=== PATIENT | male | born 1985 | race African-American/Black ===

== ENCOUNTER 2021-09-26 22:07 | Emergency (ER) | payer MEDICAID, OTHER ==
[2021-09-26] MEDS ORDERED: Acetaminophen 500 MG TAB ONE (22:49)
[2021-09-26] MEDS ORDERED: Ibuprofen 200 MG TAB ONE (22:49)
== END 2021-09-26 23:30 | disposition home or self-care (01) ==
LOC: CSHERS 22:07
DX: M79.644 Pain in right finger(s) (principal); M54.9 Dorsalgia, unspecified; V47.5XXA Car driver injured in collision with fixed or stationary object in traffic accident, initial encounter

== ENCOUNTER 2021-10-18 10:10 | Emergency (ER) | payer OTHER ==
[2021-10-18] MEDS ORDERED: Ketorolac Tromethamine 30 MG/ML VIAL ONE (10:59)
== END 2021-10-18 11:10 | disposition home or self-care (01) ==
LOC: CSHERS 10:10
DX: K02.9 Dental caries, unspecified (principal)
CPT/HCPCS: 96372; J1885

== ENCOUNTER 2022-02-06 11:16 | Emergency (ER) | payer OTHER | END 2022-02-06 13:54 | disposition home or self-care (01) | LOC: CSHERS 11:16 | DX: S60.511A Abrasion of right hand, initial encounter (principal); R20.2 Paresthesia of skin; X58.XXXA Exposure to other specified factors, initial encounter; Y92.79 Other farm location as the place of occurrence of the external cause | CPT/HCPCS: 99283 ==

== ENCOUNTER 2022-02-14 23:05 | Emergency (ER) | payer OTHER ==
[2022-02-15] MEDS ORDERED: Tetracaine 0.5% PF 4 ML BOT ONE (00:02)
[2022-02-15] MEDS ORDERED: Fluorescein Opthalmic Strip ONE (00:02)
[2022-02-15] MEDS ORDERED: Boostrix 0.5 ML (Tdap) VIAL ONE (00:14)
[2022-02-15] MEDS ORDERED: Ciprofloxacin 0.3% Ophth Soln 2.5 ml Bottle R EYE SCH (00:45)
== END 2022-02-15 01:00 | disposition home or self-care (01) ==
LOC: CSHERS 23:05
DX: T54.91XA Toxic effect of unspecified corrosive substance, accidental (unintentional), initial encounter (principal); T26.61XA Corrosion of cornea and conjunctival sac, right eye, initial encounter
CPT/HCPCS: 90471; 90715

== ENCOUNTER 2022-09-15 18:36 | Emergency (ER) | payer OTHER | END 2022-09-15 20:19 | disposition home or self-care (01) | LOC: CSHERS 18:36 | DX: R05.9 Cough, unspecified (principal); Z20.822 Contact with and (suspected) exposure to COVID-19 | CPT/HCPCS: 99283; U0003; U0005 ==

== ENCOUNTER 2022-11-17 22:25 | Emergency (ER) | payer OTHER | END 2022-11-17 23:30 | disposition home or self-care (01) | LOC: CSHERS 22:25 | DX: L03.213 Periorbital cellulitis (principal); H10.9 Unspecified conjunctivitis | CPT/HCPCS: 99283 ==

== ENCOUNTER 2025-04-07 12:39 | Emergency (ER) | payer OTHER, SELFPAY ==
[2025-04-07 13:29] LABS: #Basophils 0.04 10x3/uL (0.0-0.2); #Eosinophils 0.10 10x3/uL (0.0-0.5); #Monocytes 0.45 10x3/uL (0.0-1.1); #Neutrophils 2.99 10x3/uL (1.5-8.4); %Basophils 0.7 % (0.0-2.0); %Eosinophils 1.7 % (0.0-6.0); %Lymphocytes 38.6 % (18.0-47.0); %Monocytes 7.7 % (0.0-10.0); %Neutrophils 51.1 % (40.0-75.0); Hematocrit 48.8 % (38.8-50.0); Hemoglobin 16.1 g/dL (13.5-17.5); Mean Corpuscular Hemoglobin 29.3 pg (27.0-33.0); Mean Corpuscular Volume 88.7 fL (81.2-95.1); Platelet Count 165 10x3/uL (150-450); Red Blood Cell (RBC) Count 5.50 10x6/uL (4.32-5.72); White Blood Cell (WBC) Count 5.85 10x3/uL (3.5-10.5)
[2025-04-07 13:49] LABS: ALT (SGPT) 28 U/L (Less than 45); AST (SGOT) 32 U/L (11-34); Albumin 4.0 g/dL (3.1-4.5); Alkaline Phosphatase 57 U/L (40-110); Anion Gap 10 mmol/L (10-20); BUN (Urea Nitrogen) 11 mg/dL (8.9-20.6); Bilirubin, Total 0.4 mg/dL (0.3-1.2); Calc. Creatinine Clearance 0 mL/min (70-130); Calcium 8.7 mg/dL (7.8-10.44); Carbon Dioxide 26 mmol/L (22-29); Chloride 107 mmol/L (98-107); Globulin 2.5 g/dL (2.4-3.5); Glucose 121 mg/dL (70-105); Potassium 3.8 mmol/L (3.5-5.1); Sodium 139 mmol/L (136-145)
== END 2025-04-07 14:50 | disposition home or self-care (01) ==
LOC: CSHERS 12:39
DX: R60.0 Localized edema (principal)
CPT/HCPCS: 71045; 80053; 83880; 85025; 93970

== ENCOUNTER 2025-06-15 10:36 | Emergency (ER) | payer SELFPAY ==
[2025-06-15] MEDS ORDERED: Acetaminophen 500 MG TAB ONE (11:42)
[2025-06-15] MEDS ORDERED: Bacitracin 1 PK ONE (12:30)
== END 2025-06-15 13:33 | disposition home or self-care (01) ==
LOC: CSHERS 10:36
DX: S81.812A Laceration without foreign body, left lower leg, initial encounter (principal); M54.50 Low back pain, unspecified; V89.2XXA Person injured in unspecified motor-vehicle accident, traffic, initial encounter
CPT/HCPCS: 12001; 72100; 99284